=== PATIENT | female | born 1980 | race Caucasian/White ===

== ENCOUNTER 2019-09-17 07:18 | Emergency (ER) | payer OTHER ==
[~2019-09-17] VITALS: Ht 175.3 cm; Wt 81.7 kg
[~2019-09-17 07:18] MED LIST: ACETAMINOPHEN-1 EAC1 PO; AMOXICILLIN875 MG PO; AUGMENTIN 875875 MG PO; AZITHROMYCIN 2250 MG PO; BIRTH CONTROL; CEPHALEXIN 500500 M2 PO; CIPROFLOXACIN500 M1 PO; DOXYCYCLINE 10100 MG PO; DUONEB 2.5-0.5 M3 ML INH; EPIPEN0.3 MG/0.3 IM; FLEXERIL PO; FLONASE 0.05%50 MCG NASAL; HERBALIFE; HYDROCODON-ACE1 EAC7 PO; HYDROCODONE-APA15 ML PO; IBUPROFEN 800800 M1 PO; IBUPROFEN 800800 MG PO; KEFLEX500 MG PO; LIORESAL 10 MG10 MG PO; MACROBID 100 M100 M1 PO; MEDROLDOSEPACK PO; NAPROSYN500 MG PO; NEXIUM40 MG PO; NOHOMEMEDICATIONS; NORCO 5-325 TA1 EACH PO; PAXIL10 MG; PERCOCET 5-3251 EACH PO; PROAIR HFA8.5 GM PO; TRINATE TABLET1 TAB PO; TUSSIONEX PENN473 ML PO; ULTRAM50 MG PO; VENTOLIN HFA 1818 GM INH; ZPAK PO
[2019-09-17] MEDS ORDERED: NORCO 5-325 TA1 EAC1 PO (08:12)
[2019-09-17] MEDS ORDERED: KEFLEX500 M1 PO (08:12)
[2019-09-17 08:35] LABS: ABSOLUTE BASOPHILS 0.1 thou/uL (0.0-0.2); ABSOLUTE EOSINOPHILS 0.3 thou/uL (0.0-0.7); ABSOLUTE LYMPHOCYTES 1.7 thou/uL (0.8-5.3); ABSOLUTE MONOCYTES 0.4 thou/uL (0.0-1.2); ABSOLUTE NEUTROPHILS 4.2 thou/uL (1.6-8.1); BASOPHILS 0.9 %; EOSINOPHILS 3.8 %; HEMATOCRIT 37.9 % (37.0-47.0); HEMOGLOBIN 12.6 gm/dL (12.0-15.0); LYMPHOCYTES 25.2 %; MCH 26.2 pg (26.0-34.0); MCHC 33.2 g/dL (28.0-37.0); MCV 78.9 fL (80.0-100.0); MONOCYTES 6.3 %; MPV 7.4 fl. (7.2-11.1); NUCLEATED RBCS 0 /100WBC; PLATELET COUNT* 284 thou/uL (150-400); POLYS 63.8 %; RBC 4.81 mil/uL (4.20-5.00); WBC 6.6 thou/uL (4.0-11.0)
[2019-09-17 08:39] LABS: CALCIUM 8.3 mg/dL (8.5-10.1); CREATININE 0.7 mg/dL (0.6-1.3); POTASSIUM 3.8 mmol/L (3.5-5.1)
[2019-09-17 08:43] LABS: ALBUMIN 3.4 g/dL (3.4-5.0); TOTAL BILIRUBIN 0.2 mg/dL (<0.1-1.0); TOTAL PROTEIN 6.7 g/dL (6.4-8.2)
[2019-09-17 09:17] VITALS: BP 140/73
== END 2019-09-17 09:18 | disposition home or self-care (01) ==
LOC: M.ERS 07:18
PROVIDERS: Family Medicine
DX: I80.01 Phlebitis and thrombophlebitis of superficial vessels of right lower extremity (principal); F17.210 Nicotine dependence, cigarettes, uncomplicated; Z98.890 Other specified postprocedural states